=== PATIENT | female | born 1970 | race African-American/Black ===

== ENCOUNTER 2025-02-22 17:05 | Emergency (ER) | payer OTHER ==
--- NOTE | 2025-02-22 17:50 | ED ---
Upper Extremity HPI - General Source: patient, RN notes reviewed Mode of arrival: ambulatory Limitations: no limitations <Carmen Gr - Last Filed: 02/22/25 17:49> <Antoni Rivero - Last Filed: 02/22/25 22:27> - General Chief Complaint: Extremity Injury, Upper Stated Complaint: right hand pain Time Seen by Provider: 02/22/25 17:49 - History of Present Illness Initial Comments: Quick note: 54-year-old female presented to the ER for evaluation of right hand pain and swelling. Patient states she is visiting from [place] as a family member is ill and needed help moving. She states yesterday she was moving numerous boxes. Last night she noted pain and swelling to her right first metacarpal through third metacarpals. She does report mild tingling sensation. No known injuries. No wounds. (Carmen Gr) Patient is a 54-year-old female who presents emergency department complaining of hand pain has been lifting heavy boxes as she is helping with an ill family member. Has noticed that her right hand has been bothering her. No obvious trauma. Primary pain is in the anatomical snuffbox region. Denies any numbness or sensory deficits. Decreased range of motion secondary to pain. Presents for further evaluation at this time. She is from [place] and is currently visiting for work. Originally seen as a quick note. I evaluated patient when she was placed in room. (Antoni Rivero) - Related Data Previous Rx's Medication Instructions Recorded Ciprofloxacin HCl [Cipro] 500 mg PO Q12HR #14 tablet 09/12/15 Fluconazole [Diflucan] 150 mg PO ONCE #1 tab 09/12/15 Allergies Allergy/AdvReac Type Severity Reaction Status Date / Time ibuprofen [From Motrin] Allergy Dyspnea Verified 02/22/25 17:17 Review of Systems ROS Other: All systems not noted in ROS Statement are negative. <Carmen Gr - Last Filed: 02/22/25 17:49> ROS Other: All systems not noted in ROS Statement are negative. <Antoni Rivero - Last Filed: 02/22/25 22:27> ROS Statement: Those systems with pertinent positive or pertinent negative responses have been documented in the HPI. Review of Systems: CONST: Denies fever EYES: Denies blurry vision ENT: Denies nasal congestion C/V: Denies Chest pain RESP: Denies shortness of breath GI: Denies abdominal pain : Denies dysuria SKIN: Denies rash. MSK: Endorses hand pain NEURO: Denies headache (Antoni Rivero) Past Medical History Past Medical History: No Reported History History of Any Multi-Drug Resistant Organisms: None Reported Past Surgical History: Section, Hysterectomy, Tubal Ligation Past Psychological History: No Psychological Hx Reported Smoking Status: Never smoker Past Alcohol Use History: None Reported Past Drug Use History: None Reported <Carmen Gr - Last Filed: 02/22/25 17:49> General Exam Limitations: no limitations <Carmen Gr - Last Filed: 02/22/25 17:49> <Antoni Rivero - Last Filed: 02/22/25 22:27> - General Exam Comments Initial Comments: Visual Physical Exam Vital signs reviewed General: Well-appearing, nontoxic, no acute distress. Head: Normocephalic, atraumatic Eyes: PERRLA, EOMI ENT: Airway patent Chest: Nonlabored breathing Skin: No visual rash, normal skin tone Neuro: Alert and oriented 3 Musculoskeletal: No gross abnormalities edema to right hand 1st through 3rd metacarpals extending into digits (Carmen Gr) General: Appears in mild distress secondary to pain. HEAD: Normal with no signs of head trauma. EYES: EOMI. ENT: Hearing grossly intact. RESPIRATORY: No respiratory distress. C/V: Regular rate and rhythm. ABD: Abdomen is nondistended. EXT: No obvious deformity. Decreased range of motion of the right first and second digits secondary to pain in the anatomical snuffbox region of the hand. No obvious deformities palpated. Neurovascular intact throughout. Mild edema. SKIN: No rashes or lesions observed on exposed skin. NEURO: Alert and oriented. (Antoni Rivero) Course Vital Signs 02/22/25 02/22/25 02/22/25 17:15 18:46 19:45 Temperature 98.3 F 98.2 F Pulse Rate 79 70 75 Respiratory 18 20 18 Rate Blood Pressure 141/83 147/88 144/81 O2 Sat by Pulse 96 97 99 Oximetry Procedures - Orthopedic Splinting/Casting Injury #1 Side: right Upper Extremity Injury Location: wrist, hand Upper Extremity Immobilizer: thumb spica <Antoni Rivero - Last Filed: 02/22/25 22:27> - Orthopedic Splinting/Casting Injury #1 Additional Comments: Neurovascular intact following splinting (Antoni Rivero) Medical Decision Making <Carmen Gr - Last Filed: 02/22/25 17:49> <Antoni Rivero - Last Filed: 02/22/25 22:27> - Medical Decision Making I performed the quick note portion of this chart. Electronically signed by Carmen Gr PA-C (Carmen Gr) Was pt. sent in by a medical professional or institution ([facility], PLATING EQUIPMENT TENDER, urgent care, hospital, or snf...) When possible be specific @ -No Did you speak to anyone other than the patient for history (EMS, parent, family, police, friend...)? What history was obtained from this source @ -No Did you review nursing and triage notes (agree or disagree)? Why? @ -I reviewed and agree with nursing and triage notes Were old charts reviewed (outside hosp., previous admission, EMS record, old EKG, old radiological studies, urgent care reports/EKG's, snf records)? Report findings @ -No old charts were reviewed Differential Diagnosis (chest pain, altered mental status, abdominal pain women, abdominal pain men, vaginal bleeding, weakness, fever, dyspnea, syncope, headache, dizziness, GI bleed, back pain, seizure, CVA, palpatations, mental health, musculoskeletal)? @ -Differential Musculoskeletal Muscular strain, contusion, ligament sprain, fracture, arthritis, septic arthritis, bursitis, cellulitis, muscle spasm, nerve compression, DVT, arterial occlusion, herpes zoster, electrolyte abnormality, tumor.... This is not meant to be in all inclusive list EKG interpreted by me (3pts min.). @ -None done X-rays interpreted by me (1pt min.). @ -Hand x-ray reveals possible chip fracture on the distal aspect of the right fourth digit. No other obvious findings. CT interpreted by me (1pt min.). @ -None done U/S interpreted by me (1pt. min.). @ -None done What testing was considered but not performed or refused? (CT, X-rays, U/S, labs)? Why? @ -None What meds were considered but not given or refused? Why? @ -None Did you discuss the management of the patient with other professionals (professionals i.e. , PA, PLATING EQUIPMENT TENDER, lab, RT, psych nurse, rn social work, information management manager, teacher, licensed loan officer, clinical case manager)? Give summary @ -No Was smoking cessation discussed for >3mins.? @ -No Was critical care preformed (if so, how long)? @ -No Were there social determinants of health that impacted care today? How? (Homelessness, low income, unemployed, alcoholism, drug addiction, transportation, low edu. Level, literacy, decrease access to med. care, [facility], rehab)? @ -No Was there de-escalation of care discussed even if they declined (Discuss DNR or withdrawal of care, Hospice)? DNR status @ -No What co-morbidities impacted this encounter? (DM, HTN, Smoking, COPD, CAD, Cancer, CVA, ARF, Chemo, Hep., AIDS, mental health diagnosis, sleep apnea, morbid obesity)? @ -None Was patient admitted / discharged? Hospital course, mention meds given and r oute, prescriptions, significant lab abnormalities, going to OR and other pertinent info. @ -Based on patient's presentation and physical exam, concern for possible hand injury. X-rays was obtained. Originally ordered Toradol but patient does have an allergy to ibuprofen therefore ordered Tylenol. Vital signs within acceptable limits. X-ray does show a possible chip fracture of the distal ring finger on the right hand. However patient has no tenderness to palpation at this site. All the patient's tenderness is over the anatomical snuffbox. Discussed with the patient and patient will be placed in a thumb spica splint with instructions to follow-up with orthopedics. She states she is driving back to [place] over the next few days and will follow-up when she returns home. She will be given a starter pack of Tylenol 3's. Splinting was successful. She was in agreement this plan. Strict return precautions discussed. Concern is possible occult fracture. I instructed the patient to follow up with their PCP in the next 1-3 days. I explained that the patient should return to the emergency department if they experience any worsening symptoms. Strict return precautions were discussed with the patient. The patient expressed understanding of these instructions. I answered all questions that the patient had. The patient was discharged home in good condition with their prescriptions and follow up information. Undiagnosed new problem with uncertain prognosis? @ -No Drug Therapy requiring intensive monitoring for toxicity (Heparin, Nitro, Insulin, Cardizem)? @ -No Were any procedures done? @ -Splinting Diagnosis/symptom? @ -Injury of right hand, possible occult fracture of right wrist Acute, or Chronic, or Acute on Chronic? @ -Acute Uncomplicated (without systemic symptoms) or Complicated (systemic symptoms)? @ -Uncomplicated Side effects of treatment? @ -No Exacerbation, Progression, or Severe Exacerbation? @ -No Poses a threat to life or bodily function? How? (Chest pain, [place], [place], pneumonia, PE, COPD, DKA, ARF, appy, cholecystitis, CVA, Diverticulitis, Homicidal, Suicidal, threat to staff... and all critical care pts) @ -Unlikely at this time (Antoni Rivero) Disposition <Carmen Gr - Last Filed: 02/22/25 17:49> Is patient prescribed a controlled substance at d/c from ED?: No Time of Disposition: 19:41 <Antoni Rivero - Last Filed: 02/22/25 22:27> Clinical Impression: Injury of right hand Disposition: HOME SELF-CARE Condition: Good Instructions (If sedation given, give patient instructions): Hand Sprain (ED) Additional Instructions: Your x-ray showed possible right distal ring finger fracture however due to lack of significant pain here I doubt this is the current injury. Unknown signifi cance of this fracture. You do have anatomical snuffbox tenderness on your right hand which is why we did put in a splint in case there is an occult fracture of the wrist. Please obtain repeat x-rays in the coming days and follow-up with orthopedic surgery. I know you are traveling back to [place] also please reach out to your PCP to obtain orthopedics follow-up. If you are still in town, I did provide the follow-up information for orthopedic surgery. The splint type that we placed is called a thumb spica splint. Return to the ER for any worsening symptoms. Referrals: None,Stated [Primary Care Provider] - 1-2 days Serena Lin, [Doctor of Osteopathic Medicine] - 1-2 days
--- NOTE | 2025-02-22 18:05 | XR ---
EXAMINATION TYPE: XR hand complete RT DATE OF EXAM: 02/22/2025 CLINICAL INDICATION: Female, 54 years old with history of pain edema 1-3 digits, pain TECHNIQUE: Frontal, lateral and oblique images of the right hand are obtained. COMPARISON: Prior right hand x-ray October 29, 2012. FINDINGS: There is age-indeterminate chip type fracture from the ulnar dorsal distal aspect of the se cond middle phalanx. Correlate for point tenderness at this level for possible acute fracture. Mild t o moderate soft tissue swelling in the second finger is seen. There is mild to moderate narrowing thr oughout the PIP and DIP joints of the phalanges redemonstrated. IMPRESSION: As above. [facility], , 02/22/2025 6:02 PM
[2025-02-22 19:47] VITALS: BP 144/81; PULSE 75; RESP 18; TEMP 98.2
[2025-02-22] MEDS: ACETAMINOPHEN TAB 325 MG TAB PO STA (19:52)
[2025-02-22] MEDS: ACET/COD 300 MG/30 MG STARTER PACK 6 TAB BTL PO STA (19:53)
== END 2025-02-22 19:45 | disposition home or self-care (01) ==
LOC: EC 17:05
DX: S69.91XA Unspecified injury of right wrist, hand and finger(s), initial encounter (principal); Z88.6 Allergy status to analgesic agent; X50.0XXA Overexertion from strenuous movement or load, initial encounter
CPT/HCPCS: 29125; 99283

== ENCOUNTER 2025-04-05 12:47 | Emergency (ER) | payer SELFPAY ==
--- NOTE | 2025-04-05 13:32 | ED ---
General Adult HPI - General Chief complaint: GI Bleed Stated complaint: rectal bleeding Time Seen by Provider: 04/05/25 13:05 Source: patient Mode of arrival: ambulatory Limitations: no limitations - History of Present Illness Initial comments: Dictation was produced using [employer] dictation software. please excuse any grammatical, word or spelling errors. Chief Complaint: 54-year-old female presents with bright red blood per rectum History of Present Illness: Patient is 54-year-old female she has history of diabetes. States she is here today for bright blood per rectum. States it is associated with epigastric abdominal pain. States that the last 2 days she has had several episodes of bright red blood per rectum. Does not take any anticoagulation medications. Denies any fever, chills or night sweats. Rectal or anal pain. The ROS documented in this emergency department record has been reviewed and confirmed by me. Those systems with pertinent positive or negative responses have been documented in the HPI. All other systems are other negative and/or noncontributory. - Related Data Previous Rx's Medication Instructions Recorded Ciprofloxacin HCl [Cipro] 500 mg PO Q12HR #14 tablet 09/12/15 Fluconazole [Diflucan] 150 mg PO ONCE #1 tab 09/12/15 Allergies Allergy/AdvReac Type Severity Reaction Status Date / Time ibuprofen [From Motrin] Allergy Dyspnea Verified 04/05/25 12:52 Review of Systems ROS Statement: Those systems with pertinent positive or pertinent negative responses have been documented in the HPI. ROS Other: All systems not noted in ROS Statement are negative. Past Medical History Past Medical History: No Reported History History of Any Multi-Drug Resistant Organisms: None Reported Past Surgical History: Section, Hysterectomy, Tubal Ligation Past Psychological History: No Psychological Hx Reported Smoking Status: Never smoker Past Alcohol Use History: None Reported Past Drug Use History: None Reported General Exam - General Exam Comments Initial Comments: PHYSICAL EXAM: General Impression: Alert and oriented x3, not in acute distress HEENT: Normocephalic atraumatic, extra-ocular movements intact, pupils equal and reactive to light bilaterally, mucous membranes moist. Cardiovascular: Heart regular rate and rhythm Chest: Able to complete full sentences, no retractions, no tachypnea Abdomen: abdomen soft, non-tender, non-distended, no organomegaly Musculoskeletal: Pulses present and equal in all extremities, no peripheral edema Motor: no focal deficits noted Neurological: CN II-XII grossly intact, no focal motor or sensory deficits noted Skin: Intact with no visualized rashes Psych: Normal affect and mood Rectal exam: Refused Limitations: no limitations Course Vital Signs 04/05/25 04/05/25 04/05/25 12:50 13:43 14:57 Temperature 98 F 98.4 F Pulse Rate 95 88 79 Respiratory 18 16 20 Rate Blood Pressure 144/89 145/83 135/77 O2 Sat by Pulse 98 99 99 Oximetry Medical Decision Making - Medical Decision Making Was pt. sent in by a medical professional or institution (, PA, AIR BAG BUFFER, urgent care, hospital, or detention...) When possible be specific @ -No Did you speak to anyone other than the patient for history (EMS, parent, family, police, friend...)? What history was obtained from this source @ -No Did you review nursing and triage notes (agree or disagree)? Why? @ -I reviewed and agree with nursing and triage notes Were old charts reviewed (outside hosp., previous admission, EMS record, old EKG, old radiological studies, urgent care reports/EKG's, detention records)? Report findings @ -No old charts were reviewed Differential Diagnosis (chest pain, altered mental status, abdominal pain women, abdominal pain men, vaginal bleeding, musculoskeletal, weakness, fever, dyspnea, syncope, headache, dizziness, GI bleed, back pain, seizure, CVA, palpatations, mental health)? @ -Differential GI Bleed: Esophageal varices, aortoenteric fistula, Charlene-Lawson, gastritis, peptic ulcer disease, diverticulosis, inflammatory bowel disease, hemorrhoids, fissure, colitis, malignancy, Meckel's diverticulum, this is not meant to be an all- inclusive list. EKG interpreted by me (3pts min.). @ -None done X-rays interpreted by me (1pt min.). @ -None done CT interpreted by me (1pt min.). @ -None done U/S interpreted by me (1pt. min.). @ -None done What testing was considered but not performed or refused? (CT, X-rays, U/S, labs)? Why? @ -None What meds were considered but not given or refused? Why? @ -None Was smoking cessation discussed for >3mins.? @ -No Were there social determinants of health that impacted care today? How? (Homelessness, low income, unemployed, alcoholism, drug addiction, transportation, low edu. Level, literacy, decrease access to med. care, senior care, rehab)? @ -No Was there de-escalation of care discussed even if they declined (Discuss DNR or withdrawal of care, Hospice)? DNR status @ -No What co-morbidities impacted this encounter? (DM, HTN, Smoking, COPD, CAD, Cancer, CVA, ARF, Chemo, Hep., AIDS, mental health diagnosis, sleep apnea, morbid obesity)? @ -None Was patient admitted / discharged? Hospital course, mention meds given and route, prescriptions, significant lab abnormalities, going to OR and other pertinent info. @ -54-year-old female with no history of anticoagulation use or bleeding disorders presents to the emergency department for bright red blood per rectum times a couple days. Patient did report associated abdominal symptoms including epigastric cramping along with pelvic fullness. Vital signs stable. Patient no acute distress. Refusing rectal exam. Laboratory evaluation obtained. Labs are within acceptable limits. It was recommended to patient to get a CT film for concerns of abdominal pain. Patient refused. Would like to sign out AGAINST MEDICAL ADVICE. States that she wanted to just make sure her hemoglobin was okay. Risks, Benefits, and Treatment alternatives were discussed in detail with the patient. The patient is alert and oriented X 3 and has the capacity to make an informed decision. The risks of increased morbidity including the possibly of were explained to and understood by the patient who is choosing to leave against medical advice. The patient is encouraged to return any time should they want further treatment and diagnostic investigation. Did you discuss the management of the patient with other professionals (professionals i.e. , PA, AIR BAG BUFFER, lab, RT, psych nurse, social psychologist, sorter lumber straightener, teacher, administrative officer, case liner)? Give summary @ -No Was critical care preformed (if so, how long)? @ -No Undiagnosed new problem with uncertain prognosis? @ -No Drug Therapy requiring intensive monitoring for toxicity (Heparin, Nitro, Insulin, Cardizem)? @ -No Were any procedures done? @ -No Diagnosis/symptom? Acute, or Chronic, or Acute on Chronic? Uncomplicated (without systemic symptoms) or Complicated (systemic symptoms)? @ -Blood per rectum Side effects of treatment? @ -No Exacerbation, Progression, or Severe Exacerbation? @ -No Poses a threat to life or bodily function? How? (Chest pain, [place], [place], pneumonia, PE, COPD, DKA, ARF, appy, cholecystitis, CVA, Diverticulitis, Homicidal, Suicidal, threat to staff... and all critical care pts) @ -yes - Lab Data Result diagrams: 04/05/25 13:20 04/05/25 13:20 Lab Results 04/05/25 04/05/25 04/05/25 Range/Units 13:20 13:20 13:20 WBC 6.39 (4.50-10.00) 10*3/uL RBC 4.53 (4.10-5.20) 10*6/uL Hgb 11.9 L (12.0-15.0) g/dL Hct 36.3 L (37.2-46.3) % MCV 80.1 (80.0-97.0) fL MCH 26.3 L (27.0-32.0) pg MCHC 32.8 (32.0-37.0) g/dL Plt Count 418 (140-440) 10*3/uL MPV 9.9 (9.5-12.2) fL Immature Gran % (Auto) 0.3 % Neutrophils % 57.0 % Lymphocytes % 32.9 % Monocytes % 8.0 % Eosinophils % 1.6 % Basophils % 0.2 % Immature Gran # 0.02 (0.00-0.04) 10*3/uL Neutrophils # 3.65 (1.80-7.70) 10*3/uL Lymphocytes # 2.10 (0.90-5.00) 10*3/uL Monocytes # 0.51 (0.20-1.00) 10*3/uL Eosinophils # 0.10 (0.04-0.35) 10*3/uL Basophils # 0.01 (0.00-0.10) 10*3/uL PT 10.6 (10.0-12.5) sec INR 0.9 (<1.2) APTT 26.1 (22.0-30.0) sec Sodium 143 (137-145) mmol/L Potassium 4.1 (3.5-5.1) mmol/L Chloride 104 (98-107) mmol/L Carbon Dioxide 28 (22-30) mmol/L Anion Gap 11 mmol/L BUN 10 (7-17) mg/dL Creatinine 0.64 (0.52-1.04) mg/dL Est GFR (CKD-EPI)AfAm >90 (>60 ml/min/1.73 sqM) Est GFR (CKD-EPI)NonAf >90 (>60 ml/min/1.73 sqM) Glucose 126 H (74-99) mg/dL Calcium 10.0 (8.4-10.2) mg/dL Total Bilirubin 0.4 (0.2-1.3) mg/dL AST 20 (14-36) U/L ALT 17 (4-34) U/L Alkaline Phosphatase 62 (38-126) U/L Total Protein 7.4 (6.3-8.2) g/dL Albumin 4.3 (3.5-5.0) g/dL Disposition Clinical Impression: BRBPR (bright red blood per rectum) Disposition: LEFT AGAINST MEDICAL ADVICE Condition: Fair Instructions (If sedation given, give patient instructions): Gastrointestinal Bleeding (ED) Is patient prescribed a controlled substance at d/c from ED?: No Referrals: Nonstaff,Physician [Primary Care Provider] - 1-2 days Time of Disposition: 06:45
[2025-04-05 13:52] LABS: ALT 17 U/L (4-34); AST 20 U/L (14-36); African American GFR (CKD) >90 (>60 ml/min/1.73 sqM); Albumin 4.3 g/dL (3.5-5.0); Alkaline Phosphatase 62 U/L (38-126); Anion Gap 11 mmol/L; Blood Urea Nitrogen 10 mg/dL (7-17); Carbon Dioxide 28 mmol/L (22-30); Chloride 104 mmol/L (98-107); Glucose 126 mg/dL (74-99); Non-African American GFR(CKD) >90 (>60 ml/min/1.73 sqM); Potassium 4.1 mmol/L (3.5-5.1); Sodium 143 mmol/L (137-145); Total Bilirubin 0.4 mg/dL (0.2-1.3); Total Protein 7.4 g/dL (6.3-8.2)
[2025-04-05 13:57] LABS: Basophils # (A) 0.01 10*3/uL (0.00-0.10); Basophils % (A) 0.2 %; Eosinophils % (A) 1.6 %; HCT 36.3 % (37.2-46.3); HGB 11.9 g/dL (12.0-15.0); Lymphocytes % (A) 32.9 %; MCH 26.3 pg (27.0-32.0); MCHC 32.8 g/dL (32.0-37.0); MCV 80.1 fL (80.0-97.0); Mean Platelet Volume 9.9 fL (9.5-12.2); Monocytes # (A) 0.51 10*3/uL (0.20-1.00); Neutrophils # (A) 3.65 10*3/uL (1.80-7.70); Platelet Count 418 10*3/uL (140-440); RBC 4.53 10*6/uL (4.10-5.20); RDW 14.5 % (11.5-14.5); WBC 6.39 10*3/uL (4.50-10.00)
[2025-04-05 14:21] LABS: INR 0.9 (<1.2); Partial Thromboplastin Time 26.1 sec (22.0-30.0); Prothrombin Time 10.6 sec (10.0-12.5)
[2025-04-05 14:59] VITALS: BP 135/77; PULSE 79; RESP 20; TEMP 98.4
== END 2025-04-05 14:59 | disposition left against medical advice (07) ==
LOC: EC 12:47
DX: K62.5 Hemorrhage of anus and rectum (principal); Z88.6 Allergy status to analgesic agent
CPT/HCPCS: 36415; 80053; 85025; 85610; 85730; 99283